=== PATIENT | female | born 1985 | race Caucasian/White ===

== ENCOUNTER 2018-07-19 07:06 | Day surgery (SDC) | payer MEDICAID ==
[~2018-07-19 07:06] MED LIST: Lactated Ringers 1,000 ML IV SCH; Sodium Chloride 0.9% 10 ML Syringe FLUSH PRN
[2018-07-19] MEDS ORDERED: Bupivacaine 0.5% 30 ML SDV ONE (07:44)
[2018-07-19] MEDS ORDERED: ceFAZolin 1 GM Vial ONE (08:00)
[2018-07-19] MEDS ORDERED: fentaNYL 100 MCG/2 ML SDV ONE (08:01)
[2018-07-19] MEDS ORDERED: Midazolam 1 MG/ML 2 ML SDV ONE (08:01)
[2018-07-19] MEDS ORDERED: Propofol 200 MG/20 ML SDV ONE ×2 (08:01→09:26)
[2018-07-19] MEDS ORDERED: Lidocaine 0.5% 50 ML SDV ONE (08:04)
[2018-07-19] MEDS ORDERED: Midazolam 1 MG/ML 2 ML SDV IV ONE (08:17)
[2018-07-19] MEDS ORDERED: ceFAZolin 1 GM Vial IV ONE (08:17)
[2018-07-19] MEDS ORDERED: Propofol 200 MG/20 ML SDV IV ONE (08:17)
[2018-07-19] MEDS ORDERED: Ondansetron 4 MG/2 ML SDV IV ONE (08:17)
[2018-07-19] MEDS ORDERED: fentaNYL 100 MCG/2 ML SDV IV ONE (08:17)
[2018-07-19] MEDS ORDERED: Bupivacaine 0.5% 10 ML SDV INFILT ONE (08:45)
--- NOTE | 2018-07-19 08:52 | PCM.OPNOTE ---
- General Post-Op/Procedure Note Date of Surgery/Procedure: 07/19/18 Operative Procedure(s): Right carpal tunnel decompression Findings: Moderate compression of the right median nerve was observed underneath the transverse carpal ligament. Pre Op Diagnosis: As above. Anesthesia Technique: Regional Block Primary Surgeon: Brett Garcia Complications: None Condition: Good Free Text/Narrative:: INFORMED CONSENT: Patient is here today for elective right carpal tunnel decompression. All aspects of this procedure have been discussed with the patient. All possible complications including infection, pain, persistent numbness, nerve injury, and other unknown complications were discussed with the patient.. Anesthetic complications were handled by anesthesia department. The patient understands fully well. Patient did not have any further questions for me at the end of my interview. The patient wishes for me to proceed. PROCEDURE: Patient was kept in the supine position and the satisfactory Juliette block anesthesia was administered. The right arm was thoroughly prepped and draped in the usual fashion. The tourniquet was placed to the right upper arm and a vertical incision was made in the palm directly distal to the distal wrist crease. The skin incision was deepened through the subcutaneous tissue, the palmar aponeurosis was incised and then we came down upon the transverse carpal ligament, which was opened along the line of the skin incision. Extreme care was taken to protect the median nerve below. Careful neurolysis was performed meticulously. Approximately 2 cc of Marcaine 0.5% was instilled into the wound and skin was closed using mattress sutures with 3.0 Nylon. The tourniquet was released. A sterile pressure dressing was applied. The patient tolerated the procedure well and was transferred to the recovery room in excellent condition.
== END 2018-07-19 09:45 | disposition home or self-care (01) ==
LOC: KA.SDS 07:06
PROVIDERS: ATTEND Family Medicine
DX: G56.01 Carpal tunnel syndrome, right upper limb (principal); F17.200 Nicotine dependence, unspecified, uncomplicated; F32.9 Major depressive disorder, single episode, unspecified; F41.9 Anxiety disorder, unspecified; Z79.899 Other long term (current) drug therapy; Z88.5 Allergy status to narcotic agent; Z88.1 Allergy status to other antibiotic agents
CPT/HCPCS: 81025; J0690; J2250; J2405; J2704; J3010; J3490; J7120

== ENCOUNTER 2019-04-04 14:04 | Emergency (ER) | payer MEDICAID ==
[2019-04-04] MEDS: Sodium Chloride 0.9% 1,000 ML IV ONE (15:03)
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
[2019-04-04 15:18] LABS: ANION GAP 17.1 mmol/L (5-15); CHLORIDE,CL 107 mmol/L (98-115); SODIUM,NA 140 mmol/L (136-145)
[2019-04-04] MEDS: Sodium Chloride 0.9% 1,000 ML IV SCH (16:45)
== END 2019-04-04 16:56 ==
LOC: KA.ED 14:04
DX: T42.4X2A Poisoning by benzodiazepines, intentional self-harm, initial encounter (principal); T50.0X2A Poisoning by mineralocorticoids and their antagonists, intentional self-harm, initial encounter; F32.9 Major depressive disorder, single episode, unspecified; Z88.5 Allergy status to narcotic agent; Z88.1 Allergy status to other antibiotic agents; Z79.899 Other long term (current) drug therapy; X83.8XXA Intentional self-harm by other specified means, initial encounter
CPT/HCPCS: 36415; 80053; 82550; 82553; 85025; 93005; 96360; 99285-25; G0480; J7030

== ENCOUNTER 2019-10-20 22:55 | Emergency (ER) | payer MEDICAID ==
[2019-10-20] MEDS ORDERED: Meperidine PF 50 MG/ML Syringe IM ONE (23:43)
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
[2019-10-21] MEDS ORDERED: Acetaminophen/oxyCODONE 325-5 MG Tab PO ONE (00:23)
[2019-10-21] MEDS ORDERED: Acetaminophen/oxyCODONE 325-5 MG Tab PO PRN (00:33)
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
== END 2019-10-21 00:58 | disposition home or self-care (01) ==
LOC: KA.ED 22:55
DX: S42.292G Other displaced fracture of upper end of left humerus, subsequent encounter for fracture with delayed healing (principal); Z88.5 Allergy status to narcotic agent; Z88.1 Allergy status to other antibiotic agents; Z88.8 Allergy status to other drugs, medicaments and biological substances; Z79.899 Other long term (current) drug therapy; Z87.442 Personal history of urinary calculi; V89.2XXD Person injured in unspecified motor-vehicle accident, traffic, subsequent encounter
CPT/HCPCS: 73030-LT; 73060-LT; 96372; 99283-25; A9270-GY; J2175

== ENCOUNTER 2020-04-09 14:26 | Emergency (ER) | payer MEDICAID, OTHER ==
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
== END 2020-04-09 15:41 | disposition home or self-care (01) ==
LOC: KA.ED 14:26
DX: S93.412A Sprain of calcaneofibular ligament of left ankle, initial encounter (principal); F17.210 Nicotine dependence, cigarettes, uncomplicated; Z88.6 Allergy status to analgesic agent; Z88.1 Allergy status to other antibiotic agents; Z88.5 Allergy status to narcotic agent; Z79.899 Other long term (current) drug therapy; Y04.0XXA Assault by unarmed brawl or fight, initial encounter
CPT/HCPCS: 73610-LT; 99283; 99283-25

== ENCOUNTER 2021-03-04 07:58 | Day surgery (SDC) | payer BC, MEDICAID ==
[2021-03-04] MEDS ORDERED: Sodium Chloride 0.9% 10 ML Syringe FLUSH PRN (08:00)
[2021-03-04] MEDS ORDERED: Lactated Ringers 1,000 ML IV SCH (08:00)
[2021-03-04] MEDS ORDERED: EPINEPHrine 1:10,000 1 MG/10 ML Syringe ONE (09:46)
[2021-03-04] MEDS ORDERED: Midazolam 1 MG/ML 2 ML SDV ONE (09:49)
[2021-03-04] MEDS ORDERED: Propofol 200 MG/20 ML SDV ONE (09:49)
[2021-03-04] MEDS ORDERED: Glycopyrrolate 0.2 MG/ML SDV ONE (09:50)
[2021-03-04] MEDS ORDERED: Ketamine 200 MG/20 ML MDV ONE (09:50)
[2021-03-04] MEDS ORDERED: Lidocaine 2% 5 ML SDV ONE (09:54)
[2021-03-04] MEDS ORDERED: Albuterol 0.083% 2.5 MG/3 ML Neb Soln NEB ONE (10:23)
--- NOTE | 2021-03-04 12:16 | PCM.OPNOTE ---
- General Post-Op/Procedure Note Date of Surgery/Procedure: 03/04/21 Operative Procedure(s): Upper GI endoscopy Pre Op Diagnosis: Dysphagia, dyspepsia no response to PPIs. Post-Op Diagnosis: Mild antral gastritis, mild reflux esophagitis. Anesthesia Technique: [facility] [place] Primary Surgeon: Brett Garcia Complications: None Condition: Good Free Text/Narrative:: INFORMED CONSENT: Patient is here today for elective upper GI endoscopy. All aspects of this procedure have been discussed with the patient. All possible complications also, including possibility of perforation, infection, pain, bleeding, numbness of the throat, swallowing difficulty and unknown complications. In the event of perforation the patient may need surgical exploration to repair the defect. The patient understands fully well. Patient did not have any further questions for me at the end of my interview. The patient wishes for me to proceed. INSTRUMENT USED: Video gastroscope ANESTHESIA: [[facility] [place]] ASA CLASSIFICATION: [2] PROCEDURE PERFORMED: [Upper GI endoscopy] PHARYNX: Normal. ESOPHAGUS: Normal. Proximal: Normal. Middle: Normal. Lower: Normal. GE Junction: Normal. From the incisors to the Z-line was 35 cm., 2 cm hiatal hernia noted at the diaphragmatic pinch. STOMACH: Normal. Cardia: Normal. Fundus: Normal. Lesser Curvature: Normal. Greater Curvature: Normal. Antrum: Mild to moderate antral gastritis was observed.. Pylorus: Normal. DUODENUM: Normal. First Part: Normal. Second Part: Normal. Third Part: Normal. RETROFLEXION: Normal. BIOPSY: None. TOLERANCE: Excellent. COMPLICATIONS: None.
== END 2021-03-04 11:50 | disposition home or self-care (01) ==
LOC: KA.SDS 07:58
PROVIDERS: ATTEND Family Medicine
DX: K29.60 Other gastritis without bleeding (principal); K21.00 Gastro-esophageal reflux disease with esophagitis, without bleeding; K44.9 Diaphragmatic hernia without obstruction or gangrene; F90.9 Attention-deficit hyperactivity disorder, unspecified type; R05 Cough; Z79.899 Other long term (current) drug therapy; Z88.8 Allergy status to other drugs, medicaments and biological substances; Z88.5 Allergy status to narcotic agent; Z98.890 Other specified postprocedural states
CPT/HCPCS: 00731; 81025; 94640; J2250; J2704; J3490; J7120; J7613-GY

== ENCOUNTER 2021-04-06 09:28 | Day surgery (SDC) | payer BC, MEDICAID ==
[2021-04-06] MEDS ORDERED: Propofol 200 MG/20 ML SDV IV ONE (09:29)
[2021-04-06] MEDS ORDERED: Sodium Chloride 0.9% 10 ML Syringe FLUSH PRN (09:30)
[2021-04-06] MEDS: Lactated Ringers 1,000 ML IV SCH (10:07)
[2021-04-06] MEDS ORDERED: Ketamine 200 MG/20 ML MDV ONE (10:27)
[2021-04-06] MEDS ORDERED: Propofol 200 MG/20 ML SDV ONE ×2 (10:27→10:43)
[2021-04-06] MEDS ORDERED: Midazolam 1 MG/ML 2 ML SDV ONE (10:27)
--- NOTE | 2021-04-06 11:28 | PCM.OPNOTE ---
- General Post-Op/Procedure Note Date of Surgery/Procedure: 04/06/21 Operative Procedure(s): Colonoscopy. Findings: Long tortuous colon but no evidence of obstruction, polyps or malignancy. Pre Op Diagnosis: Habitual constipation abdominal cramping. Post-Op Diagnosis: No evidence of obstruction, polyps malignancy etc. Anesthesia Technique: MAC Primary Surgeon: Brett Garcia Complications: None Condition: Good Free Text/Narrative:: INFORMED CONSENT: Patient is here today for elective colonoscopy. All aspects of this procedure have been discussed with the patient. All possible complications also, including possibility of perforation, infection, pain, bleeding and unknown complications. In the event of perforation patient may need to have abdominal exploration, colon resection, colostomy and even was discussed. Anesthetic complications were handled by anesthesia department. The patient understands fully well. Patient did not have any further questions for me at the end of my interview. The patient wishes for me to proceed. PREOPERATIVE DIAGNOSIS/INDICATIONS: [Habitual constipation, abdominal pain and cramping] POSTOPERATIVE DIAGNOSIS: [Long tortuous colon without any mucosal abnormalities. Possibly due to irritable bowel syndrome.] INSTRUMENT USED: Olympus videocolonoscope. ASA CLASSIFICATION: [1] ANESTHESIA: Continuous EKG, oximetry and intermittent blood pressure and respiratory monitoring were performed throughout the procedure. IV Versed and Fentanyl were administered. PROCEDURE PERFORMED: Colonoscopy POSITIONS OF PATIENT: Left lateral. RECTUM: Normal. SIGMOID COLON: Normal. DESCENDING COLON: Normal. SPLENIC FLEXURE: Normal. TRANSVERSE COLON: Normal. HEPATIC FLEXURE: Normal. ASCENDING COLON: Normal. CECUM: Normal. ILEOCECAL VALVE: Normal. BIOPSY: None. TOLERANCE: Excellent. COMPLICATIONS: None. The colon was felt to be long and slightly tortuous in places. Otherwise no abnormalities were discovered.
== END 2021-04-06 12:20 | disposition home or self-care (01) ==
LOC: KA.SDS 09:28
PROVIDERS: ATTEND Family Medicine
DX: K63.89 Other specified diseases of intestine (principal); K59.00 Constipation, unspecified; Z79.899 Other long term (current) drug therapy; Z88.8 Allergy status to other drugs, medicaments and biological substances; Z88.5 Allergy status to narcotic agent
CPT/HCPCS: 00812; 81025; J2250; J2704; J7120

== ENCOUNTER 2022-01-21 07:18 | Emergency (ER) | payer BC, MEDICAID | END 2022-01-21 08:20 | disposition home or self-care (01) | LOC: KA.ED 07:18 | DX: G58.8 Other specified mononeuropathies (principal); Z88.5 Allergy status to narcotic agent; Z88.0 Allergy status to penicillin; Z79.899 Other long term (current) drug therapy | CPT/HCPCS: 99283; 99284 ==